=== PATIENT | female | born 1975 | race Caucasian/White ===

== ENCOUNTER → 2024-06-26 06:56 | Outpatient (REF) | payer OTHER, SELFPAY | LOC: WDC 06:56 | PROVIDERS: ATTENDING PHYSICIAN Family Medicine | DX: Z12.31 Encounter for screening mammogram for malignant neoplasm of breast (principal) | CPT/HCPCS: 77063; 77067 ==

== ENCOUNTER → 2024-07-10 15:26 | Outpatient (REF) | payer OTHER, SELFPAY | LOC: RAD 15:26 | PROVIDERS: ATTENDING PHYSICIAN Registered Nurse | DX: M62.838 Other muscle spasm (principal) | CPT/HCPCS: 72040 ==

== ENCOUNTER → 2025-06-27 06:49 | Outpatient (REF) | payer OTHER, SELFPAY | LOC: WDC 06:49 | PROVIDERS: ATTENDING PHYSICIAN Nurse Practitioner Adult Health | DX: Z12.31 Encounter for screening mammogram for malignant neoplasm of breast (principal) | CPT/HCPCS: 77063; 77067 ==

== ENCOUNTER → 2025-08-27 12:53 | Outpatient (REF) | payer OTHER, SELFPAY | LOC: HWEVLT 12:53 | PROVIDERS: ATTENDING PHYSICIAN Radiology Diagnostic Radiology | DX: I83.892 Varicose veins of left lower extremity with other complications (principal) | CPT/HCPCS: 93971 ==